=== PATIENT | female | born 1940 | race Caucasian/White ===

== ENCOUNTER 2019-02-15 09:41 | Emergency (ER) | payer OTHER ==
[~2019-02-15] VITALS: Wt 80.0 kg
[2019-02-15] MEDS ORDERED: SOD CHLORIDE 0.9% 1,000 ML IV STA ×2 (11:47→12:02)
[2019-02-15] MEDS ORDERED: ONDANSETRON 4 MG INJ IV STA (12:02)
[2019-02-15] MEDS ORDERED: morphine 2 MG INJ IV STA (12:02)
--- NOTE | 2019-02-15 13:38 | ERD ---
ER Documentation Chief Complaint Chief Complaint AP X 3 WEEKS HPI This is a 78-year-old female with a history of hypertension, right-sided nephrectomy secondary to iatrogenic air in [facility] who presents to the emergency room valuation of right-sided flank pain. The patient states that she had a flank pain for 3 weeks and is worse with movement of the torso. The patient denies any fevers, painful urination, urinary frequency or urinary urgency. She denies any numbness tingling in the lower extremities and came to the ER for evaluation. She does state that she has had a nephrectomy on the right side ROS All systems reviewed and are negative except as per history of present illness. Allergies Allergies: Coded Allergies: Penicillins (Verified Allergy, Intermediate, RASH, 02/15/19) PMhx/Soc History of Surgery: Yes (hysterectomy, renal stone sx) Anesthesia Reaction: No Hx Neurological Disorder: No Hx Respiratory Disorders: No Hx Cardiac Disorders: Yes (htn) Hx Psychiatric Problems: No Hx Miscellaneous Medical Probl: Yes (uterine cancer) Hx Alcohol Use: No Hx Substance Use: No Hx Tobacco Use: No Smoking Status: Never smoker Physical Exam Vitals Vital Signs Date Temp Pulse Resp B/P (MAP) Pulse Ox O2 O2 Flow FiO2 Time Delivery Rate 02/15/19 98.1 51 16 110/50 98 Room Air 11:25 (70) 02/15/19 98.2 63 18 134/63 99 09:44 (86) Physical Exam Const: No acute distress Head: Atraumatic Eyes: Normal Conjunctiva ENT: Normal External Ears, Nose and Mouth. Neck: Full range of motion. No meningismus. Resp: Clear to auscultation bilaterally Cardio: Regular rate and rhythm, no murmurs Abd: Right-sided CVAT, otherwise soft, non tender, non distended. Normal bowel sounds Skin: No petechiae or rashes Back: No midline or flank tenderness Ext: No cyanosis, or edema Neur: Awake and alert Psych: Normal Mood and Affect Result Diagram: 02/15/19 1208 02/15/19 1208 Results 24 hrs Laboratory Tests Test 02/15/19 12:08 White Blood Count 6.5 10^3/ul Red Blood Count 3.72 10^6/ul Hemoglobin 10.9 g/dl Hematocrit 33.6 % Mean Corpuscular Volume 90.3 fl Mean Corpuscular Hemoglobin 29.3 pg Mean Corpuscular Hemoglobin Concent 32.4 g/dl Red Cell Distribution Width 14.1 % Platelet Count 215 10^3/UL Mean Platelet Volume 10.5 fl Immature Granulocytes % 0.600 % Neutrophils % 56.0 % Lymphocytes % 32.3 % Monocytes % 6.8 % Eosinophils % 3.7 % Basophils % 0.6 % Nucleated Red Blood Cells % 0.0 /100WBC Immature Granulocytes # 0.040 10^3/ul Neutrophils # 3.7 10^3/ul Lymphocytes # 2.1 10^3/ul Monocytes # 0.4 10^3/ul Eosinophils # 0.2 10^3/ul Basophils # 0.0 10^3/ul Nucleated Red Blood Cells # 0.0 10^3/ul Urine Color YELLOW Urine Clarity SLIGHTLY CLOUDY Urine pH 5.0 Urine Specific Lyman 1.021 Urine Ketones TRACE mg/dL Urine Nitrite NEGATIVE mg/dL Urine Bilirubin NEGATIVE mg/dL Urine Urobilinogen 2+ mg/dL Urine Leukocyte Esterase NEGATIVE Rober/ul Urine Microscopic RBC 1 /HPF Urine Microscopic WBC 2 /HPF Urine Mucus FEW /HPF Urine Hemoglobin NEGATIVE mg/dL Urine Glucose NEGATIVE mg/dL Urine Total Protein NEGATIVE mg/dl Sodium Level 137 mmol/L Potassium Level 4.3 mmol/L Chloride Level 105 mmol/L Carbon Dioxide Level 29 mmol/L Anion Gap 3 Blood Urea Nitrogen 25 mg/dl Creatinine 0.88 mg/dl Est Glomerular Filtrat Rate mL/min mL/min Glucose Level 98 mg/dl Calcium Level 9.7 mg/dl Total Bilirubin 0.2 mg/dl Direct Bilirubin 0.00 mg/dl Indirect Bilirubin 0.2 mg/dl Aspartate Amino Transf (AST/SGOT) 20 IU/L Alanine Aminotransferase (ALT/SGPT) 18 IU/L Alkaline Phosphatase 66 IU/L Total Protein 6.8 g/dl Albumin 4.1 g/dl Globulin 2.70 g/dl Albumin/Globulin Ratio 1.51 Lipase 188 U/L Current Medications Medications Dose Sig/Kerry Start Time Status Last (Trade) Ordered Route PRN Stop Time Admin Dose Reason Admin Sodium 1,000 ml @ Q1H STAT 02/15/19 DC 02/15/19 Chloride 1,000 mls/hr IV 11:47 02/15/19 12:48 12:46 Morphine 2 mg ONCE STAT 02/15/19 DC 02/15/19 Sulfate IV 12:02 02/15/19 12:48 (morphine) 12:03 Ondansetron 4 mg ONCE STAT 02/15/19 DC 02/15/19 HCl (Zofran IV 12:02/15/19 12:48 Inj) 12:03 Sodium 1,000 ml @ Q1H STAT 02/15/19 DC Chloride 1,000 mls/hr IV 12:02 02/15/19 13:01 Procedures/MDM CT abdomen pelvis without: No evidence of urolithiasis, obstructive uropathy or diverticulitis. Diverticulosis. Post appendectomy. Cardiomegaly. Vascular calcifications. Hysterectomy. L5-S1 degenerative disc narrowing. Absent right kidney. Clinical correlation suggested. This 78-year-old female presents the ER for evaluation of right-sided flank pain. On my exam the patient reproducible right-sided CVAT. The patient was placed on monitor, IV line was established and lab work was drawn. The patient has no significant lab abnormalities, urinalysis does show some bilirubin however there is no signs of kenny urinary tract infection. Patient was given IV fluids, and morphine. CT the abdomen pelvis shows no signs of intra- abdominal pathology. On reexamination the patient states he is feeling much better. The patient is likely suffering from muscle strain and will be discharged home with a prescription for Tylenol with codeine, and a refill for her losartan with hydrochlorothiazide. Patient presents today with atraumatic back pain. Although infection, malignancy, GI, , and vascular causes have been considered in this patient, the patient's clinical presentation is most consistent with a musculoskeletal cause. There is neither evidence of any acute neurologic damage, nor of loss of function and thus, advanced imaging studies have been deferred. Patient will be treated conservatively with appropriate pain control precautionary discharge instructions provided. Departure Diagnosis: Primary Impression: Acute lumbar myofascial strain Additional Impressions: Back pain Normocytic anemia Medication refill Condition: NATALY Simms DO Feb 15, 2019 13:38
[2019-02-15] MEDS ORDERED: LOSA1TAB28 PO ×2 (13:39→14:16)
[2019-02-15] MEDS ORDERED: ACET1TAB40 PO (13:39)
[2019-02-15 14:13] VITALS: BP 118/43; PULSE 51; RESP 18
[2019-02-15] MEDS ORDERED: FENO145T25 PO (14:16)
[2019-02-15] MEDS ORDERED: OMEP20CA16 PO (14:16)
[2019-02-15] MEDS ORDERED: CHOL100062 PO (14:16)
== END 2019-02-15 14:14 | disposition home or self-care (01) ==
LOC: E/R 09:41
DX: S29.012A Strain of muscle and tendon of back wall of thorax, initial encounter (principal); D64.9 Anemia, unspecified; I10 Essential (primary) hypertension; X58.XXXA Exposure to other specified factors, initial encounter; Y92.9 Unspecified place or not applicable; Z76.0 Encounter for issue of repeat prescription; Z85.42 Personal history of malignant neoplasm of other parts of uterus
CPT/HCPCS: 36415; 74176; 80053; 81001; 83690; 85025; 96374; 96375; J2270; J2405; J7030; Z7502; Z7610; 81003